=== PATIENT | female | born 1985 | race Caucasian/White ===

== ENCOUNTER → 2016-05-16 | Outpatient (CLI) | payer BC ==
--- NOTE | 2016-05-16 19:02 | US ---
[facility] Providers, Thank you for sending your patient, Margarita Cisneros, to us for an US and consultation to assess anatomy. As you know, the patient is a 31 y.o. G3, P2002 at 19 weeks and 0 days with an EDC of 10/10/16 based on LMP. The patient reports a sure LMP. However, she has been measuring size > dates since 14 weeks. Due to t he rapid growth in fundal height, the patient is referred both for an anatomy US and to evaluate for a twin . She has not had an US yet this . The patient lives in [place] about [address] from [place]. Genetic Screening: Declined The patient denies any uterine contractions, vaginal bleeding, or loss of fluid. Today, she is withou t complaints. US FINDINGS: Number of fetuses: 2 Cervix: 5.4 cm, transabdominally The adnexa were evaluated. No pathology was seen. Right ovary: Normal Left ovary: Normal TWIN A: Placental location: Posterior, No previa Placental Cord Insertion: Central presentation: Breech, maternal right MVP: 5.7 heart rate: 158 bpm Measurements: Biparietal diameter: 45 mm, 19 weeks 5 days Head circumference: 169 mm, 19 weeks 4 days Abdominal circumference: 158 mm, 21 weeks 0 days Femur length: 32 mm, 19 weeks 6 days Humerus length: 30 mm, 20 weeks 0 days Transcerebellar diameter: 20 mm, 19 weeks 1 days Average ultrasound age: 20 weeks 1 days Estimated weight: 346 g weight percentile: 98% ANATOMY Supratentorial brain: Normal Cerebral lateral ventricle: 4 mm Posterior fossa: Normal Cisterna magna: 4 mm Nuchal fold: 4.0 mm Lip: Normal Profile: Normal Alveolar Ridge: Appears intact Spine: -- Cervical: Normal -- Thoracic: Normal -- Lumbar: Normal -- Sacral: Normal Heart: -- 4 Chamber: Normal -- Intraventricular septum: Appears intact -- Right Outflow Tract: Normal -- Left Outflow Tract: Normal -- 3 Vessel View: Normal Diaphragm: Appears Intact Stomach: Normal Abdominal Umbilical Cord Insertion: Normal Right kidney: Normal Left kidney: Normal Bladder: Normal Number of cord vessels: 3 Upper extremities: -- Right Arm: Normal -- Right Hand: Normal -- Left Arm: Suboptimal -- Left Hand: Suboptimal Lower extremities: -- Right Leg: Normal -- Right Foot: Normal, no evidence of clubbing -- Left Leg: Normal -- Left Foot: Normal, no evidence of clubbing Sex: Female TWIN B: Placental location: Posterior, No previa Placental Cord Insertion: Central presentation: Cephalic, maternal left MVP: 5.5 cm heart rate: 153 bpm Measurements: Biparietal diameter: 44 mm, 19 weeks 2 days Head circumference: 170 mm, 19 weeks 5 days Abdominal circumference: 150 mm, 20 weeks 2 days Femur length: 29 mm, 19 weeks 0 days Humerus length: 27 mm, 18 weeks 5 days Transcerebellar diameter: 20 mm, 19 weeks 2 days Average ultrasound age: 19 weeks 4 days Estimated weight: 299 g weight percentile: 78% ANATOMY Supratentorial brain: Normal, Bilateral CPCs Cerebral lateral ventricle: 6 mm Posterior fossa: Normal Cisterna magna: 4 mm Nuchal fold: 4.0 mm Lip: Normal Profile: Normal Alveolar Ridge: Appears intact Spine: -- Cervical: Normal -- Thoracic: Normal -- Lumbar: Normal -- Sacral: Normal Heart: -- 4 Chamber: Normal -- Intraventricular septum: Appears intact -- Right Outflow Tract: Normal -- Left Outflow Tract: Normal -- 3 Vessel View: Suboptimal Diaphragm: Appears Intact Stomach: Normal Abdominal Umbilical Cord Insertion: Normal Right kidney: Normal Left kidney: Normal Bladder: Normal Number of cord vessels: 3 Upper extremities: -- Right Arm: Normal -- Right Hand: Limited -- Left Arm: Normal -- Left Hand: Limited Lower extremities: -- Right Leg: Normal -- Right Foot: Normal, no evidence of clubbing -- Left Leg: Normal -- Left Foot: Normal, no evidence of clubbing Sex: Female TWIN SIZE DIFFERENCE: 13% with Twin A larger. Overall concordant growth. Impression: 1. Anatomy: Today, both twins measures appropriate for gestational age, measuring a normal weight an d percentile. Visualization of both twins reveals no overt structural anomalies. There is evidence of normal amniotic fluid around both twins. 2. Genetic Screening: This patient has declined genetic screening in this . Today, isolated, bilateral CPCs in Twin B were the only markers of aneuploidy. While her US results are reassur ing, we reviewed that US alone can miss cases of aneuploidy, in particular Trisomy 21. We also reviewed that aneuploidy can only be definitively excluded with diagnostic testing via amniocen tesis. After this discussion, the patient does not wish to proceed with further genetic screening or invasive testing at this time. 3. Dichorionic-Diamniotic Twin : Today, a lambda sign was seen. Additionally, 2 distinct lay ers were seen in the intertwin membrane with agitation of the membrane. However, we reviewed at length that chorionicity is best diagnosed in the first trimester, and it is possible that this is a monochorionic-diamniotic twin given the presence of a fused posterior placenta and female sex of both twins. We reviewed that twin pregnancies carry an increased risk of gestational diabetes, preeclampsia, IUGR of one or both twins, malpresentation, delivery, and delivery. W e also discussed that there is a small chance that TTTS or TAPS could develop if this in fact a monoc horionic twin . The patient wishes to avoid as many US as possible. She is willing to receiv e US every 4 weeks at a MINIMUM unless signs concerning for TTTS or TAPS develop. Lastly, we had a alejo taylor discussion about transferring her care to an [facility] provider closer to home. We identified [facility] as a possible location for care, as she can receive US surveillance and OB care there. She will reach out to her midwives to further discuss transfer of care. I strongly encouraged her to establish care as quickly as possible as she will need another US in 4 weeks. - Transfer of care to OB provider capable of delivery and vaginal breech extraction if possi ble - Growth US every 4 weeks - Start TTTS and TAPS checks every 2 weeks if a missed diagnosis of monochorionic twin is s uspected - labor signs were reviewed. - Twice weekly NSTs and weekly fluid checks starting at 36 weeks (or at 32 weeks if a monochorionic t win suspected) - Delivery by 38+0 weeks with mode of delivery depending on size and position Thank you again for sending this patient to see us today. Approximately 22 minutes of a total visit t moses of 30 minutes were spent with this patient today in direct face to face counseling regarding monae y's US findings and the above recommendations. Please feel free to contact me with any questions at . Nadege Rivera MD Maternal- Medicine
--- NOTE | 2016-05-17 11:21 | US ---
Obstetrical Ultrasound Complete , twin gestation Clinical Indications: Size greater than dates. Evaluate anatomy and possibility of twin pregna ncy.. Dr. Nadege Rivera was present during imaging. Findings: Twin viable intrauterine fetuses are present. Twin A is currently in breech orientation on the maternal right and twin B is currently in vertex orientation on the maternal left. The placenta is located posteriorly. The umbilical cord insertion does not appear to be eccentric. Dichorionic, diamniotic twin suspected. Cervix measures 5.4 cm in length. By LMP the gestational age is 19 weeks for an EDC of October 10, 2016. The maternal ovaries are normal in appearance with the left ova ry measuring 2.2 x 1.4 x 2.3 cm and the right ovary measuring 3.1 x 1.6 x 3.5 cm. Twin A Measurements were obtained as follows: Composite gestational age of 20 weeks 1.0 day for ivett mated date of delivery ultrasound of October 02, 2016 Biparietal diameter = 19 weeks 5 days = 4.53 cm Head circumference = 19 weeks 4 days = 16.85 cm Abdominal circumference = 21 weeks = 15.82 cm Femur length = 19 weeks 6 days = 3.16 cm Cerebellum width = 19 weeks 1 day = 1.98 cm Humerus length= 20 weeks = 3.01 cm The estimated weight is 346 grams (12 ounces). With respect to LMP, this places the fetus at th e 98th% for weight with respect to LMP. Maximal vertical pocket = 5.7 cm. Supratentorial brain: Normal Posterior fossa: Normal Spine: Limited evaluation secondary to positioning but grossly normal. Nose and lips: Normal Heart: Four chamber heart with heart rate of 158 bpm. RVOT: Normal LVOT: Normal Stomach: Normal Umbilical cord insertion: Normal Kidneys: Normal, no pyelectasis Bladder: Normal Number of cord vessels: Three Upper extremities: Normal Lower extremities: Normal Twin B Measurements were obtained as follows: Composite gestational age of 19 weeks 4 days for estim ated date of delivery ultrasound of October 06, 2016 Biparietal diameter = 19 weeks 2 days = 4.36 cm Head circumference = 19 weeks 5 days = 16.97 cm Abdominal circumference = 20 weeks 2 days = 14.90 cm Femur length = 19 weeks = 2.86 cm Cerebellum width = 19 weeks 2 days = 1.99 cm] Humerus length= 18 weeks 5 days = 2.72 cm The estimated weight is 299 grams (11 ounces). With respect to LMP, this places the fetus at th e 78th% for weight with respect to LMP. Maximal vertical pocket = 5.5 cm. Supratentorial brain: Choroid plexus cyst is noted involving the posterior body left lateral ventric le measuring 8 x 6 mm and posterior body of the right lateral ventricle measuring 7 x 6 mm. The remai estevan cerebral parenchyma has a normal echotexture. Posterior fossa: Normal Spine: Normal Nose and lips: Normal Heart: Four chamber heart with heart rate of 153 BPM. RVOT: Normal LVOT: Normal Stomach: Normal Umbilical cord insertion: Normal Kidneys: Normal, no pyelectasis Bladder: Normal Number of cord vessels: Three Upper extremities: Normal Lower extremities: Normal Impression: 1. Twin dichorionic, diamniotic viable intrauterine gestations with EGA by U/S of twin A 20 weeks 1. 0 day with an EDC of October 02, 2016 and EGA by U/S of twin B 19 weeks 4 days with an EDC of October 06 7. 2. EGA by LMP is 19 weeks with an EDC by LMP of October 10, 2016. 3. Fetus a is at the 98th percentile for weight with respect to LMP and his B is at the 78th percent ile. Continued followup is scheduled. 4. Bilateral Choroid plexus cyst seen associated with the fetus B. There is a weak association betwe en CPCs and aneuploidy especially when multiple other structural anomalies or markers are evident. Th faye include cardiac anomalies, clenched hands or abnormalities of the feet, IUGR and polyhydramnios. Other findings include omphalocele, diaphragmatic hernia, posterior fossa abnormalities, hyperteloris m or an abnormal nuchal lucency. If the patient's maternal serum marker screen does not reveal an inc reased risk for aneuploidy, and if no other markers for aneuploidy are evident on ultrasound, this is likely an incidental finding.
== END ==
LOC: FIMAGING 12:58
PROVIDERS: ATTEND Advanced Practice Midwife
DX: O30.042 Twin pregnancy, dichorionic/diamniotic, second trimester (principal); O35.8XX2 Maternal care for other (suspected) fetal abnormality and damage, fetus 2; Z3A.19 19 weeks gestation of pregnancy